=== PATIENT | female | born 1965 | race Caucasian/White ===

== ENCOUNTER → 2019-06-28 | Outpatient (CLI) | payer OTHER ==
[~2019-06-28] MED LIST: ABIL10TA PO; ESZOPICLONE 5 MG PO; ZYPR5TAB PO; [UNRECOGNIZED DRUG - OTHER] PO; ativan PO; topamax PO; tylenol es PO
--- NOTE | 2019-07-01 20:34 | SLEEPCENT ---
DATE OF PROCEDURE: 06/28/2019 ORDERED BY: VIDHI Silva Nocturnal polysomnography was performed for evaluation of sleep physiology in this patient with a history of excessive somnolence and nonrestorative sleep. 8 hours and 23 minutes of data were reviewed. There were 410 minutes of sleep identified. Sleep latency was prolonged at 68 minutes. Rapid eye movement (REM) latency was normal at 89 minutes. Sleep architecture was fairly good with five REM cycles. Overall sleep efficiency 83.1%. The electrocardiogram showed a sinus rhythm with an average heart rate of 68 beats per minute. Rate ranged 62-96. EEG showed normal waveforms for awake and sleep. There were 26 respiratory events identified of 10 seconds in duration or greater for an apnea-hypopnea index of 3.8. The events that were seen were more frequent in the supine posture and were for the most part hypopneic. Arousals from respiratory events occurred 4.4 times per hour when arousals from snoring were include. There was minimal activity in the limb leads. Limb EMG arousals 2.6 times per hour. IMPRESSION: Normal nocturnal polysomnography with snoring. RECOMMENDATIONS: Sleep position retraining for avoidance of the supine posture may help with the snoring issue.
== END ==
LOC: M SLEEP 20:00
PROVIDERS: ATTEND Nurse Practitioner Family
DX: R40.0 Somnolence (principal)